=== PATIENT | female | born 1995 | race Caucasian/White ===

== ENCOUNTER 2021-11-19 08:28 | Outpatient (CLI) | payer OTHER | END 2021-11-19 08:29 | disposition critical access hospital (66) | LOC: EMS 08:28 | DX: R10.815 Periumbilic abdominal tenderness (principal); N93.9 Abnormal uterine and vaginal bleeding, unspecified; R11.2 Nausea with vomiting, unspecified; R19.7 Diarrhea, unspecified | CPT/HCPCS: A0425; A0427 ==